=== PATIENT | female | born 1990 | race Caucasian/White ===

== ENCOUNTER → 2022-10-04 | Outpatient (CLI) | payer OTHER | LOC: M WHC 10:54 | PROVIDERS: ATTEND Nurse Practitioner Family | DX: Z12.31 Encounter for screening mammogram for malignant neoplasm of breast (principal) ==

== ENCOUNTER → 2023-04-19 | Outpatient (CLI) | payer OTHER | LOC: M WHC 10:50 | PROVIDERS: ATTEND Nurse Practitioner Family | DX: R92.8 Other abnormal and inconclusive findings on diagnostic imaging of breast (principal) ==

== ENCOUNTER → 2023-05-04 | Outpatient (CLI) | payer OTHER ==
[2023-05-04 07:54] VITALS: TEMP 99.6
[2023-05-04 08:44] VITALS: BP 104/70
== END ==
LOC: M WHCPRO 07:30
PROVIDERS: ATTEND Nurse Practitioner Family
DX: R92.8 Other abnormal and inconclusive findings on diagnostic imaging of breast (principal); N63.42 Unspecified lump in left breast, subareolar

== ENCOUNTER → 2023-06-15 | Outpatient (REF) | payer OTHER ==
[2023-06-15 18:14] LABS: Trichomonas vaginalis (AMP) NOT DETECTED (NEGATIVE)
[2023-06-15 18:37] LABS: GC DNA AMPLIFICATION NEGATIVE (NEGATIVE)
[2023-06-15 19:37] LABS: BASO % 0.4 % (0.0-1.0); EOS # 0.1 10^3/uL (0.0-0.5); EOS % 1.1 % (0.0-3.0); HEMOGLOBIN 12.2 g/dl (12.0-15.5); LYMPH # 2.2 10^3/uL (1.5-5.0); LYMPH % 39.7 % (24.0-44.0); MEAN CORPUSCULAR HEMOGLOBIN 26.9 pg (27.0-33.0); MEAN CORPUSCULAR HGB CONC 32.1 g/dl (32.0-36.5); MEAN CORPUSCULAR VOLUME 83.7 fl (80.0-96.0); MONO # 0.4 10^3/uL (0.0-0.8); MONO % 7.9 % (2.0-8.0); NEUTROPHILS # 2.7 10^3/uL (1.5-8.5); NEUTROPHILS % 50.3 % (36.0-66.0); PLATELET COUNT, AUTOMATED 311 10^3/uL (150-450); RED BLOOD COUNT 4.54 10^6/uL (4.00-5.40); WHITE BLOOD COUNT 5.4 10^3/uL (4.0-10.0)
[2023-06-15 19:46] LABS: ALBUMIN 4.1 G/DL (3.2-5.2); ALKALINE PHOSPHATASE 56 U/L (46-116); ALT/SGPT 25 U/L (7.0-40); AST/SGOT 16 U/L (<34); BILIRUBIN,TOTAL 0.5 MG/DL (0.3-1.2); BLOOD UREA NITROGEN 16 MG/DL (9-23); CALCIUM LEVEL 9.1 MG/DL (8.5-10.1); CARBON DIOXIDE LEVEL 25 MMOL/L (20-31); CHLORIDE LEVEL 107 MMOL/L (98-107); CHOLESTEROL LEVEL 188 MG/DL (<200); CHOLESTEROL RISK RATIO 2.79 (<5); CREATININE FOR GFR 0.63 MG/DL (0.55-1.30); GLOMERULAR FILTRATION RATE > 60.0 (>60); GLUCOSE, FASTING 73 MG/DL (60-100); HDL CHOLESTEROL 67.3 MG/DL (>40); IRON (FE) 52 UG/DL (50-170); LDL CHOLESTEROL 108.5 MG/DL (<100); NON-HDL-C 120.7 MG/DL; PERCENT SATURATION 12.4 % (13.2-45.0); POTASSIUM SERUM 4.6 MMOL/L (3.5-5.1); SODIUM LEVEL 138 MMOL/L (136-145); TOTAL IRON BINDING CAPACITY 418 UG/DL (250-425); TOTAL PROTEIN 7.1 G/DL (5.7-8.2); TRIGLYCERIDES LEVEL 61 MG/DL (<150)
[2023-06-15 19:48] LABS: THYROID STIMULATING HORMONE 1.093 uIU/ML (0.55-4.78)
[2023-06-15 19:49] LABS: TOTAL 25(OH) VITAMIN D 23.8 NG/ML (20.0-100.0)
[2023-06-15 20:05] LABS: HEMOGLOBIN A1c 4.8 % (4.0-6.0)
== END ==
LOC: M LAB REF 16:32
PROVIDERS: ATTEND Nurse Practitioner Family
DX: Z11.9 Encounter for screening for infectious and parasitic diseases, unspecified (principal); E66.3 Overweight; E55.9 Vitamin D deficiency, unspecified; Z86.2 Personal history of diseases of the blood and blood-forming organs and certain disorders involving the immune mechanism; R53.83 Other fatigue

== ENCOUNTER → 2023-09-07 | Outpatient (CLI) | payer OTHER | LOC: M RAD 14:52 | PROVIDERS: ATTEND Nurse Practitioner Family | DX: R07.89 Other chest pain (principal); R00.1 Bradycardia, unspecified ==

== ENCOUNTER → 2023-09-07 | Outpatient (CLI) | payer OTHER | LOC: M WUC 14:01 | PROVIDERS: ATTEND Nurse Practitioner Family | DX: R07.89 Other chest pain (principal) ==

== ENCOUNTER → 2023-11-21 | Outpatient (CLI) | payer OTHER | LOC: M WHC 10:33 | PROVIDERS: ATTEND Nurse Practitioner Family | DX: R92.8 Other abnormal and inconclusive findings on diagnostic imaging of breast (principal) ==

== ENCOUNTER 2024-02-14 14:04 | Inpatient (IN) | payer OTHER ==
[~2024-02-14] VITALS: Ht 167.6 cm; Wt 72.7 kg
[2024-02-14] MEDS: MORPHINE 4 MG/ML 1ML VIAL IV ONE (15:05)
[2024-02-14 15:07] LABS: BASO % 0.2 % (0.0-1.0); HEMATOCRIT 36.1 % (36.0-47.0); HEMOGLOBIN 12.2 g/dl (12.0-15.5); LYMPH # 0.5 10^3/uL (1.5-5.0); LYMPH % 7.1 % (24.0-44.0); MEAN CORPUSCULAR HEMOGLOBIN 27.1 pg (27.0-33.0); MEAN CORPUSCULAR HGB CONC 33.8 g/dl (32.0-36.5); MEAN CORPUSCULAR VOLUME 80.2 fl (80.0-96.0); MONO # 0.7 10^3/uL (0.0-0.8); MONO % 9.8 % (2.0-8.0); NEUTROPHILS # 5.5 10^3/uL (1.5-8.5); NEUTROPHILS % 82.6 % (36.0-66.0); PLATELET COUNT, AUTOMATED 291 10^3/uL (150-450); WHITE BLOOD COUNT 6.6 10^3/uL (4.0-10.0)
[2024-02-14 15:22] LABS: INR 1.11; PARTIAL THROMBOPLASTIN TIME 27.7 SECONDS (24.8-34.2); PROTHROMBIN TIME 14.6 SECONDS (12.5-14.5)
[2024-02-14 15:27] LABS: CK-MB VALUE MASS < 1.0 NG/ML (<3.6); LIPASE 31 U/L (12-53)
[2024-02-14 15:29] LABS: ALKALINE PHOSPHATASE 49 U/L (35-104); ALT/SGPT 25 U/L (7.0-40); AST/SGOT 40 U/L (<34); BILIRUBIN,DIRECT 0.2 MG/DL (<0.4); BILIRUBIN,TOTAL 0.6 MG/DL (0.3-1.2); BLOOD UREA NITROGEN 13 MG/DL (9-23); CALCIUM LEVEL 9.3 MG/DL (8.5-10.1); CARBON DIOXIDE LEVEL 16 MMOL/L (20-31); CHLORIDE LEVEL 112 MMOL/L (98-107); GLOMERULAR FILTRATION RATE > 60.0 (>60); GLUCOSE, FASTING 108 MG/DL (60-100); POTASSIUM SERUM 3.6 MMOL/L (3.5-5.1); SODIUM LEVEL 142 MMOL/L (136-145); TOTAL PROTEIN 6.9 G/DL (5.7-8.2)
[2024-02-14] MEDS: ACETAMINOPHEN *IV* 1,000 MG in IV 1 EA IV ONE (15:30)
[2024-02-14 15:31] LABS: FREE T4 1.03 NG/DL (0.89-1.76); THYROID STIMULATING HORMONE 0.552 uIU/ML (0.55-4.78)
[2024-02-14 15:34] LABS: CPK CREATINE PHOSPHOKINASE 1172 U/L (34-145); MB/CK RELATIVE INDEX 0.08 (< OR =4)
[2024-02-14] MEDS: NS (Normal Saline) 0.9% 1,000 ML IV SCH ×2 (15:45→18:00)
[2024-02-14] MEDS ORDERED: ISOVUE-370 76% 100ML VIAL As Ordered ONE (15:52)
[2024-02-14] MEDS: NS (Normal Saline) 0.9% 1,000 ML IV ONE (16:40)
[2024-02-14] MEDS ORDERED: HOME MED LIST COMPLETE! XX SCH (16:50)
[2024-02-14] MEDS: PANTOPRAZOLE 40MG VIAL IV SCH (18:00)
[2024-02-14] MEDS ORDERED: ONDANSETRON 4MG 2ML VIAL IV PRN (18:00)
[2024-02-14] MEDS ORDERED: KETOROLAC 30 MG/ML 1ML VIAL IV PRN (19:35)
[2024-02-14] MEDS: ACETAMINOPHEN *IV* 1,000 MG in IV 1 EA IV SCH (23:21)
[2024-02-15 08:39] LABS: CPK CREATINE PHOSPHOKINASE 566 U/L (34-145)
[2024-02-15 08:42] LABS: BLOOD UREA NITROGEN 15 MG/DL (9-23); CARBON DIOXIDE LEVEL 21 MMOL/L (20-31); CHLORIDE LEVEL 115 MMOL/L (98-107); CREATININE FOR GFR 0.67 MG/DL (0.55-1.30); GLOMERULAR FILTRATION RATE > 60.0 (>60); GLUCOSE, FASTING 111 MG/DL (60-100); POTASSIUM SERUM 3.3 MMOL/L (3.5-5.1); SODIUM LEVEL 144 MMOL/L (136-145)
[2024-02-15 09:00] VITALS: BP 104/65; TEMP 97.4; O2SAT 99
[2024-02-15] MEDS ORDERED: ACET500P3 PO (10:18)
[2024-02-15] MEDS ORDERED: ONDA-282 PO (10:18)
[2024-02-15] MEDS: POTASSIUM CHLORIDE 10MEQ SR TABLET PO ONE (10:42)
== END 2024-02-15 12:56 | disposition home or self-care (01) | DRG 866 ==
LOC: M ED 14:04 → M ED INP 18:00
PROVIDERS: ADMIT Internal Medicine Nephrology; ATTEND Internal Medicine Nephrology
DX: J10.89 Influenza due to other identified influenza virus with other manifestations (principal); F84.0 Autistic disorder; M62.82 Rhabdomyolysis; R07.89 Other chest pain; F90.9 Attention-deficit hyperactivity disorder, unspecified type; F41.9 Anxiety disorder, unspecified; R11.2 Nausea with vomiting, unspecified; F17.290 Nicotine dependence, other tobacco product, uncomplicated; F32.A Depression, unspecified; Z90.49 Acquired absence of other specified parts of digestive tract; Z98.84 Bariatric surgery status; Z88.0 Allergy status to penicillin; Z88.5 Allergy status to narcotic agent; Z88.8 Allergy status to other drugs, medicaments and biological substances; Z91.018 Allergy to other foods

== ENCOUNTER → 2024-09-19 | Outpatient (REF) | payer OTHER ==
[~2024-09-19] MED LIST: ACET500P3 PO; ONDA-282 PO
[2024-09-19 17:48] LABS: CPK CREATINE PHOSPHOKINASE 38.0 U/L (34-145); IRON (FE) 29.0 UG/DL (50-170); PERCENT SATURATION 6.7 % (13.2-45.0)
[2024-09-19 18:13] LABS: ESTIMATED AVERAGE GLUCOSE 105.0 MG/DL (60-110)
[2024-09-19 18:29] LABS: CHOLESTEROL LEVEL 185.0 MG/DL (<200); CHOLESTEROL RISK RATIO 2.42 (<5); LDL CHOLESTEROL 95.5 MG/DL (<100); NON-HDL-C 108.7 MG/DL; TRIGLYCERIDES LEVEL 66.0 MG/DL (<150)
== END ==
LOC: M LAB REF 16:30
PROVIDERS: ATTEND Nurse Practitioner Family
DX: E61.1 Iron deficiency (principal); E66.3 Overweight; Z87.39 Personal history of other diseases of the musculoskeletal system and connective tissue

== ENCOUNTER → 2024-11-26 | Outpatient (REF) | payer OTHER ==
[2024-11-26 17:13] LABS: Trichomonas vaginalis (AMP) NOT DETECTED (NEGATIVE)
[2024-11-26 17:36] LABS: GC DNA AMPLIFICATION NEGATIVE (NEGATIVE)
[2024-11-26 18:17] LABS: HIV 1&2 SCREEN NEGATIVE (NEGATIVE)
[2024-11-26 18:25] LABS: HEPATITIS C VIRUS ABY INDEX < 0.02 INDEX (<0.8)
[2024-12-02 09:42] LABS: HSV SOURCE Serum; HSV-1 DNA Not Detected (Not Detected); HSV-2 DNA Not Detected (Not Detected)
== END ==
LOC: M LAB REF 15:14
PROVIDERS: ATTEND Physician Assistant
DX: Z11.3 Encounter for screening for infections with a predominantly sexual mode of transmission (principal); A64 Unspecified sexually transmitted disease